=== PATIENT | male | born 1995 | race Caucasian/White ===

== ENCOUNTER 2020-04-04 10:28 | Emergency (ER) | payer OTHER, SELFPAY ==
[2020-03-21 14:58] VITALS: BMI 23.3
[2020-04-04 10:30] VITALS: BP 121/82; PULSE 132; RESP 18; TEMP 36.6; O2SAT 97; BMI 29.8
--- NOTE | 2020-04-04 10:50 | RAD_ITS ---
STUDY: X-RAY - LEFT ANKLE REASON FOR EXAM: Male, 24 years old. LEFT ANKLE PAIN AND SWELLING THAT STARTED YESTERDAY. PATIENT STATES HE STOOD UP AND FELT A CRACK IN HIS LEFT ANKLE. TECHNIQUE: 3 view(s) of the ankle. COMPARISON: None. FINDINGS: Normal visualized distal tibia and fibula. Normal medial and lateral malleoli. Normal tibiotalar articulation and ankle mortise. Normal visualized talus and calcaneus. The visualized subtalar, talonavicular, calcaneocuboid and tarsal articulations are normal. Soft tissue swelling more prominent overlying the lateral aspect. RAD/Ankle min 3 Views IMPRESSION: Soft tissue swelling. Electronically Signed: Mt Alvarenga, at 11:04 EDT , Service support ,
--- NOTE | 2020-04-04 11:07 | ED.VIS.LOWEX ---
History of Present Illness Chief Complaint: Lower Extremity Injury Informant: Patient Occurred: Yesterday Mechanism/Context: Injury - bent down, ? if inverted left foot or not, felt sudden cracks and pops followed by pain lateral left ankle Onset: Yesterday Context: Sudden Onset Timing: Continuous Quality of Pain: Aching Location: left ankle Current Severity: Mild Maximum Severity: Moderate Worsened by: weight bearing Relieved by: rest Associated Symptoms: Negative for: Parasthesia, Weakness, Loss of Funtion - able to ambulate at the time and now Narrative: Denies other injury. No foot or knee pain. No numbness/weakness. Past Medical History - Allergies and Home Meds Allergies/Adverse Reactions: Allergies No Known Allergies Allergy (Verified 04/04/20 10:28) Primary Care Physician: Care Physician,No Primary [Primary Care Provider] - Past Medical History: None Smoking Status: Current every day smoker Review of Systems Musculoskeletal: Reports: Swelling - lateral left ankle, Extremity Pain Skin: Denies: Rash, Wounds Neurological: Denies: Headache, Weakness, Numbness Physical Exam Vital Signs/Narrative: Vital Signs Temp Pulse Resp BP Pulse Ox 04/04/20 10:30 97.9 F 132 H 18 121/82 H 97 Inital Vital Signs reviewed: Yes - Extremity Exam Left Ankle: - - Swelling about the lateral malleolus, with some tenderness just distally. Nontender to base of the fifth metatarsal, medial malleolus, proximal fibula. Increased pain significantly with passive inversion of the foot at the ankle. Very little discomfort with passive eversion.. Negative for: Limited ROM General: Well nourished, Well developed, - - NAD Skin: Normal color - Slightly erythematous at the left lateral malleolus of the ankle, no excessive warmth compared with surrounding areas, skin is not superficially tender throughout that distribution. No induration or other skin lesion or nidus for infection., No rash, No Trauma Neurological: Alert, Oriented x3, Cranial nerves II-XII grossly intact, Normal Strength, Normal Sensation Psychological: Normal affect, Normal Mood Diagnostic/Tx/Re-eval Clinical Impression(s) from Imaging Studies Ankle X-Ray 04/04/20 10:50 IMPRESSION: Soft tissue swelling. Electronically Signed: Mt Al[place], at 11:04 EDT , Service support , - Medical Decision Making I reviewed the x-rays and agree that showed no fracture. Consistent with a sprain. Patient was placed in an Aircast stirrup, he is able to ambulate, he was offered several options for analgesics and declines. Given appropriate discharge instructions for ankle sprain. ED Disposition - Plan for ED Patient: Disposition: Home or Assisted Living Diagnosis: Left ankle sprain Instructions: ED Sprain Ankle W X Ray Referrals: Doctor,Your [STAFF PHYSICIAN] - 10-14 Days if not better Additional Instructions: Ibuprofen, ice, rest as needed for pain.
== END 2020-04-04 11:24 | disposition home or self-care (01) ==
LOC: ED 11:22
PROVIDERS: Emergency Provider Emergency Medicine
DX: S93.402A Sprain of unspecified ligament of left ankle, initial encounter (principal); F17.200 Nicotine dependence, unspecified, uncomplicated; X58.XXXA Exposure to other specified factors, initial encounter
CPT/HCPCS: 73610; 99283